=== PATIENT | male | born 1990 | race Caucasian/White ===

== ENCOUNTER 2018-09-29 15:25 | Emergency (ER) | payer OTHER ==
[~2018-09-29] VITALS: Ht 177.8 cm; Wt 72.6 kg
[2018-09-29 15:30] VITALS: BP 128/89
--- NOTE | 2018-09-29 15:30 | NUR ---
PT. BIB ALS DUE TO DIZZYNESS AND HYPERGLYCEMIA. PT STATES " I AHVE BEEN FEELING DIZZY FOR THE PAST COUPLE OF DAYS AND THIS IS HOW I FEEL WHEN MY BLOOD SUGAR IS HIGH". BS: 494 UPON ARRIVAL. RR EVEN AND UNLABORED. PT. IS PALE AND SKIN WARM AND DRY TO TOUCH. DENIES ANY PAIN AT THIS TIME. DENIES CP AT THIS TIME, DENIES SOB. L HAND 18G PRESENT UPON ARRIVAL WITH NACL 0.9 INFUSING WIDE OPEN. PT. WAS FOUND IN FRONT OF A LIQUOR STORE. PT. ADMITS TO METH USE 2 DAYS AGO AND STATES " I GAVE MYSELF 8 UNITS OF LANTUS RIGHT BEFORE I CALL THE AMBULANCE. ER MD MADE AWARE. SAFETY PRECAUTIONS IMPLEMENTED. VSS. WILL CONTINUE TO MONITOR.
[2018-09-29] MEDS ORDERED: NACL 0.9% 1,000 ML IV ONE ×2 (15:35→16:00)
[2018-09-29 15:50] LABS: BASOPHILS # (AUTO) 0.1 K/uL (0.00-0.22); BASOPHILS % (AUTO) 0.8 % (0.0-2.0); EOSINOPHILS # (AUTO) 0.7 K/uL (0-0.4); EOSINOPHILS % (AUTO) 9.1 % (0.0-4.0); HEMOGLOBIN 10.9 g/dL (12.0-18.0); LYMPHOCYTES # (AUTO) 2.3 K/uL (2.0-11.5); LYMPHOCYTES % (AUTO) 29.6 % (20.5-51.1); MEAN CORPUSCULAR HEMOGLOBIN 27 pg (27-31); MEAN CORPUSCULAR HGB CONC 33 g/dL (33-37); MEAN CORPUSCULAR VOLUME 82.9 fL (80-94); MONOCYTES # (AUTO) 0.5 K/uL (0.8-1.0); MONOCYTES % (AUTO) 6.9 % (1.7-9.3); NEUTROPHILS # (AUTO) 4.1 K/uL (1.8-7.7); NEUTROPHILS % (AUTO) 53.6 % (42.2-75.2); PLATELET COUNT (AUTO) 312 K/uL (140-450); RED BLOOD CELL COUNT(AUTO) 3.97 MIL/uL (4.20-6.10); RED CELL DISTRIBUTION WIDTH 16.8 % (11.6-13.7); WHITE BLOOD COUNT (AUTO) 7.7 K/uL (4.8-10.8)
[2018-09-29 16:02] LABS: ALBUMIN 3.5 g/dL (3.4-5.0); ANION GAP 13.2 (8-16); ASPARTATE AMINOTRANSFERASE 11 U/L (15-37); CARBON DIOXIDE 27.7 mmol/L (21-32); CHLORIDE 94 mmol/L (98-107); CREATININE 1.4 mg/dL (0.7-1.3); GFR ARICAN-AMERICAN 77 mL/min (>90); POTASSIUM 3.9 mmol/L (3.5-5.1); SODIUM SERUM 131 mmol/L (136-145); TOTAL BILIRUBIN 0.4 mg/dL (0.0-1.0); UREA NITROGEN, BLOOD 12 mg/dL (7-18)
[2018-09-29 16:05] LABS: ACETAMINOPHEN < 0.5 ug/ml (10-30); GLUCOSE 443 mg/dL (74-106); SALICYLATE < 2.8 mg/dL (2.8-20.0)
--- NOTE | 2018-09-29 16:05 | NUR ---
NOA FROM LAB CALLED TO REPORT CRITICAL GLUCOSE 443. ER MD BRADY MADE AWARE.
[2018-09-29] MEDS ORDERED: INSULIN REGULAR, HUMAN 100 UNIT/ML VIAL IVP ONE (16:10)
--- NOTE | 2018-09-29 16:22 | NUR ---
pt. unable to provide urine sample at this time. er md alfaro made aware. will continue to monitor.
--- NOTE | 2018-09-29 17:12 | NUR ---
PT. RESTING COMFORTABLY IN BED, RR EVEN AND UNLABORED. VSS. WILL CONTINUE TO MONITOR,
[2018-09-29 17:23] VITALS: BP 110/68
--- NOTE | 2018-09-29 17:24 | NUR ---
Patient discharged with v/s stable. Written and verbal after care instructions given and explained. Patient verbalized understanding. Ambulatory with steady gait. All questions addressed prior to discharge. Advised to follow up with PMD.
== END 2018-09-29 17:24 | disposition home or self-care (01) ==
LOC: MED 15:25
DX: E86.0 Dehydration (principal); N28.9 Disorder of kidney and ureter, unspecified; E11.65 Type 2 diabetes mellitus with hyperglycemia; F15.10 Other stimulant abuse, uncomplicated; Z88.0 Allergy status to penicillin
CPT/HCPCS: 36415; 80053; 82009; 82948; 85025; 93005; 96361; 96374; 99285; G0480; G0482; J1815; J7030